=== PATIENT | male | born 1960 | race Caucasian/White ===

== ENCOUNTER 2016-09-15 09:01 | Inpatient (IN) | payer OTHER ==
--- NOTE | ~2016-09-15 | OP ---
Record Of Operation [facility] [address] [place]. [address] NAME: PILI CORONEL SR : 56 STATUS : DIS IN PAT#: [id number] AGE: 56 ADM/REG DATE : 09/15/16 MR#: [id number] REPORT SERV DATE: 09/18/16 DICTATED BY: TRUDI VAZQUEZ II DATE: 09/18/16 REPORT STATUS : Draft TRANSCRIBED BY: MODL DATE: 09/18/16 DATE OF PROCEDURE: 09/15/2016 PREOPERATIVE DIAGNOSES: 1. L4-L5 spondylolisthesis, degenerative. 2. Stenosis L4-5, with lower extremity radiculopathy. 3. History of L4-5 laminectomy. 4. Mild stenosis, multilevel (congenital plus acquired). POSTOPERATIVE DIAGNOSES: 1. L4-L5 spondylolisthesis, degenerative. 2. Stenosis L4-5, with lower extremity radiculopathy. 3. History of L4-5 laminectomy. 4. Mild stenosis, multilevel (congenital plus acquired). PROCEDURE: 1. Revision facetectomy, L4-L5. 2. Interbody arthrodesis, L4-L5. 3. Application of prosthetic device, L4-L5. 4. Posterolateral arthrodesis, L4-L5. 5. Posterior nonsegmental instrumentation, L4-5. 6. Use of local autograft, allograft substitute, and bone morphogenic protein. 7. Use of the microscope and stereotactic spinal imaging. SURGEON: Trudi Vazquez M.D. FLUIDS: 1 liter of lactated Ringer's. ESTIMATED BLOOD LOSS: 80 mL. DRAINS: One drain. COMPLICATIONS: None. ANTIBIOTIC: Preoperatively. PREOPERATIVE HISTORY: This is a very friendly 56-year-old gentleman, who did well for a while following his laminectomy, and then his leg pains began increasing. His spondylolisthesis has unfortunately significantly progressed somewhat surprisingly since we first wound evaluated him. We discussed the pros and cons of surgery. Unfortunately, he does have some mild stenosis at multiple levels, which appears to be a combination of congenital and acquired. We discussed the surgery. I felt that the surgery should only be done at L4-5. I felt that he would likely need additional surgery down the road regardless of where we stopped, but I recommended performing a single-level surgery only. We discussed the risks. We discussed the increased risk of infection given his diabetes. Record Of Operation [facility] [address] [place]. [address] NAME: PILI CORONEL SR : 56 STATUS : DIS IN PAT#: [id number] AGE: 56 ADM/REG DATE : 09/15/16 MR#: [id number] REPORT SERV DATE: 09/18/16 DICTATED BY: TRUDI VAZQUEZ II DATE: 09/18/16 REPORT STATUS : Draft TRANSCRIBED BY: MODL DATE: 09/18/16 We discussed the fact that other risks present include. But are not limited to, CSF leak, foot drop, nerve root injury, as well as a chance of hardware failure, nonunion, and a small chance of stroke and . DESCRIPTION OF PROCEDURE: After informed consent was obtained, the patient was brought to the operating room at his request, and general anesthesia achieved. He was placed in the prone position. The back was prepped and draped in a sterile fashion. The iliac crest on the left was chosen for placement of the stereotactic spinal pin, this was placed, and the intraoperative CT scan completed. The minimally invasive incision was performed on the right at L4-5, followed by placement of the quadrant retractor. The microscope was now brought into place and under microscopic visualization, the transverse processes were dissected upon and the xgbdic-[id number] blades placed. Next, the revision facetectomy was performed and a [id number] decompression was achieved. The severely hypertrophic facets were now removed. There was a significant amount of scarring at the canal level. We were able to successfully dissect the majority of the scar off the dura. At this point, we were able to confirmed under microscopic visualization, the decompression of the L4 and L5 nerve roots. Next, the prosthetic device was then checked at. Next, the interbody arthrodesis was initiated with diskectomy at L4-5. The L5 nerve root was gently retracted followed by diskectomy with the pituitary rongeurs, Kerrison rongeurs, and curettes. The endplates were denuded of their cartilage with the pituitary rongeurs, Kerrison rongeurs, and the curettes. Punctate bleeding bone was identified on both endplates followed by irrigation. Next, the prosthetic device was placed at L4-L5 into the anterior column. This contained a small amount of bone morphogenic protein. We also placed local autograft in the anterior column. Next, the pedicle screws were applied into L4 and L5, following confirmation of the stereotactic accuracy. The 7.5 mm screws were placed bilaterally. Percutaneous screws were placed on the left. We then performed a repeat CT scan which confirmed acceptable placement of the implants. The rods were then assembled and final tightening performed. Next, the decortication was performed on the right. The transverse processes were decorticated, followed by placement of local autograft, allograft substitute, and bone morphogenic protein. A deep drain was placed, followed by standard closure, and the patient was then extubated and transferred to PACU in stable condition. AMANDA/KARINE Trudi Vazquez II, M.D. Record Of Operation [address] [address] NAME: PILI CORONEL MICHELE : 56 STATUS : DIS IN PAT#: [id number] AGE: 56 ADM/REG DATE : 09/15/16 MR#: [id number] REPORT SERV DATE: 09/18/16 DICTATED BY: TRUDI VAZQUEZ II DATE: 09/18/16 REPORT STATUS : Draft TRANSCRIBED BY: KARINE DATE: 09/18/16 / [id number] CC: Heavenly Rojas II, II, M.D.
[~2016-09-15 09:01] MED LIST: AVALIDE1 TA1 PO; CINNAMONPO PO; GARLIC PO; GLUCOPHAGE1000 MG PO; IRBESARTAN/HCTZ PO; JARDI25B PO; KRILLOIL PO; MICRONASE5 MG PO; MULTIVITAMI1 PO; NEUR100 PO; NORCO1 TA2 PO; TRADJENTA5 MG PO; VITAMIN B-122500 MCG SL
[2016-09-17] MEDS ORDERED: MSCONTIN PO (14:52)
[2016-09-17] MEDS ORDERED: DSS PO (14:52)
[2016-09-17] MEDS ORDERED: BACTRONASA NAS (14:54)
[2016-09-17] MEDS ORDERED: XODOL 10-300 T1 EACH PO (14:57)
== END 2016-09-17 15:29 | disposition home or self-care (01) | DRG 460 ==
LOC: SDC/OF 09:01 → PACU 14:38 → 1SO 16:10
PROVIDERS: Orthopaedic Surgery
PROC: 4A11X4G Monitoring of Peripheral Nervous Electrical Activity, Intraoperative, External Approach (ICD-10-PCS; 2016-09-15)
PROC: 0SG00AJ Fusion of Lumbar Vertebral Joint with Interbody Fusion Device, Posterior Approach, Anterior Column, Open Approach (ICD-10-PCS; principal; 2016-09-15 10:45)
PROC: 0SB20ZZ Excision of Lumbar Vertebral Disc, Open Approach (ICD-10-PCS; 2016-09-15 10:45)
DX: M51.16 Intervertebral disc disorders with radiculopathy, lumbar region (principal); I10 Essential (primary) hypertension; M43.16 Spondylolisthesis, lumbar region; J44.9 Chronic obstructive pulmonary disease, unspecified; E11.9 Type 2 diabetes mellitus without complications; F17.210 Nicotine dependence, cigarettes, uncomplicated; Z79.84 Long term (current) use of oral hypoglycemic drugs; Z79.891 Long term (current) use of opiate analgesic; Z79.899 Other long term (current) drug therapy
CPT/HCPCS: 82962; 87641; 88304; 88311; 97116-GP; 97161-GP; A9270-GY; C1713; C1768; J0690; J1170; J2250; J2370; J2405; J2710; J3010